=== PATIENT | male | born 1965 | race Caucasian/White ===

== ENCOUNTER 2022-10-18 13:39 | Day surgery (SDC) | payer OTHER ==
[2022-10-18] VITALS (10 sets, daily range): BP systolic 121–150; BP diastolic 72–106
[~2022-10-18] VITALS: Ht 185.4 cm; Wt 97.5 kg
[~2022-10-18 13:39] MED LIST: HYDR-4353 PO
[2022-10-18] MEDS ORDERED: fentaNYL/PF 50MCG/1 ML 2ML syringe IV ONE (14:00)
[2022-10-18] MEDS ORDERED: MIDAZolam 1mg/ml 10ml vial IV ONE (14:00)
[2022-10-18] MEDS ORDERED: AMLO5TAB16 PO (14:11)
[2022-10-18] MEDS ORDERED: LOSA50TA64 PO (14:11)
[2022-10-18] MEDS ORDERED: Zinc PO (14:14)
[2022-10-18] MEDS ORDERED: QUER500C PO (14:15)
[2022-10-18] MEDS ORDERED: MULT-1085 PO (14:16)
[2022-10-18] MEDS ORDERED: VITA-268 PO (14:16)
[2022-10-18] MEDS ORDERED: ASPI-1265 PO (14:17)
[2022-10-18] MEDS ORDERED: APIX5TAB3 PO (14:18)
[2022-10-18] MEDS ORDERED: SOTA80TA46 PO (14:19)
[2022-10-18 14:30] LABS: BASOPHILS % (AUTO) 0.8 % (0-1); EOSINOPHILS % (AUTO) 0.7 % (0-6); HEMATOCRIT 43.6 % (42.0-52.0); HEMOGLOBIN 15.1 g/dl (14.0-17.9); LYMPHOCYTES % (AUTO) 32.5 % (21-51); MEAN CORPUSCULAR HEMOGLOBIN 33.9 PG (27.0-31.0); MEAN CORPUSCULAR HGB CONC 34.5 g/dL (33.0-36.5); MEAN CORPUSCULAR VOLUME 98.2 FL (78-98); MONOCYTES # (AUTO) 0.6 X10'3 (0-0.9); MONOCYTES % (AUTO) 9.7 % (2-12); NEUTROPHILS # (AUTO) 3.4 X10'3 (1.8-7.7); NEUTROPHILS % (AUTO) 56.3 % (42-75); PLATELET COUNT 263 X10'3 (140-440); RED BLOOD COUNT 4.44 X10'6 (4.70-6.10); RED CELL DISTRIBUTION WIDTH 12.9 % (11.5-14.5); WHITE BLOOD COUNT 6.1 X10'3 (4.5-11.0)
[2022-10-18 14:47] LABS: ALBUMIN 4.5 G/DL (3.4-5.0); ANION GAP 9 (8-16); APTT 32 SECONDS (22-32); BLOOD UREA NITROGEN 10 MG/DL (7-18); BUN/CREATININE RATIO 13.5 (5.4-32.0); CALCIUM 8.8 MG/DL (8.5-10.1); CHLORIDE 102 MMOL/L (99-107); CREATININE 0.74 MG/DL (0.60-1.10); GLUCOSE 100 MG/DL (70-104); POTASSIUM 3.1 MMOL/L (3.5-5.1); SODIUM 139 MMOL/L (135-145); TOTAL CARBON DIOXIDE 28.4 MMOL/L (24-32); eGFR > 90 ML/MIN
== END 2022-10-18 17:00 | disposition home or self-care (01) ==
LOC: SSTAY O 13:39
PROVIDERS: ATTEND Student in an Organized Health Care Education/Training Program
DX: I48.91 Unspecified atrial fibrillation (principal); I10 Essential (primary) hypertension; G47.33 Obstructive sleep apnea (adult) (pediatric); F17.220 Nicotine dependence, chewing tobacco, uncomplicated; Z79.82 Long term (current) use of aspirin; Z79.01 Long term (current) use of anticoagulants; Z79.899 Other long term (current) drug therapy
CPT/HCPCS: 36415; 80048; 85025; 85610; 85730; 92960; 93005; J2250; J3010; J7030; A4620